=== PATIENT | female | born 1945 | race African-American/Black ===

== ENCOUNTER 2021-07-25 06:28 | Emergency (ER) | payer MEDICARE, MEDICAID ==
[~2021-07-25] VITALS: Ht 157.5 cm; Wt 60.0 kg
[2021-07-25] MEDS ORDERED: CARBAMIDE PEROXIDE 6.5% OTIC SOLN 15ML EACH EAR ONE (07:45)
[2021-07-25] MEDS ORDERED: CARB15DR63 EACH EAR (09:31)
[2021-07-25 09:40] VITALS: BP 135/74
== END 2021-07-25 09:52 | disposition home or self-care (01) ==
LOC: ER 06:28
DX: H61.23 Impacted cerumen, bilateral (principal)
CPT/HCPCS: 69209; 99282

== ENCOUNTER 2024-08-13 18:05 | Emergency (ER) | payer MEDICARE, MEDICAID ==
[~2024-08-13] VITALS: Ht 162.6 cm; Wt 91.0 kg
[~2024-08-13 18:05] MED LIST: CARB15DR63 EACH EAR
[2024-08-13 18:14] VITALS: TEMP 98.6; O2SAT 99
[2024-08-13 19:35] LABS: HEMATOCRIT. 45.5 % (36.0-48.0); HEMOGLOBIN. 15.5 g/dL (12.0-16.0); MEAN CORPUSCULAR HEMOGLOBIN 31.1 pg (28.0-32.0); MEAN CORPUSCULAR VOLUME 91.5 fL (81.0-99.0); MEAN PLATELET VOLUME 7.4 fl (7.4-10.4); PLATELET 291 x1000/uL (130-400); RED BLOOD CELL COUNT 4.97 mill/uL (4.2-5.4); RED CELL DISTRIBUTION WIDTH 13.9 % (11.6-14.6)
[2024-08-13 19:38] LABS: CHLORIDE 94 mEq/L (98-107); POTASSIUM 2.9 mEq/L (3.5-5.1); SODIUM 130 mEq/L (136-145)
[2024-08-13 19:39] LABS: CARBON DIOXIDE 26 mEq/L (21-32); DIFFERENTIAL COMMENT 1
[2024-08-13 19:44] LABS: CREATININE 1.6 mg/dL (0.6-1.0); GLUCOSE 223 mg/dL (70-105)
[2024-08-13 19:45] LABS: TROPONIN I HIGH SENSITIVITY 13 ng/L (3.0-34); UREA NITROGEN BLOOD 18 mg/dL (9-23)
[2024-08-13 19:46] LABS: ALANINE AMINOTRANSFERASE 9 IU/L (10-49); ALBUMIN 3.9 g/dL (3.2-4.8); ASPARTATE AMINOTRANSFERASE 12 IU/L (<34); WHITE BLOOD COUNT 54.6 x1000/uL (4.5-11.0)
[2024-08-13 19:47] LABS: BILIRUBIN DIRECT 0.3 mg/dL (<=3.0); BILIRUBIN TOTAL 0.7 mg/dL (0.1-1.0); PROTEIN TOTAL 6.8 g/dL (6.0-8.3)
[2024-08-13 20:39] LABS: INR 1.2
[2024-08-13 21:20] VITALS: BP 110/49; PULSE 85; RESP 15; O2SAT 99
[2024-08-13] MEDS: PANTOPRAZOLE SODIUM 40 MG/VIAL IV STA (21:27)
[2024-08-13] MEDS: ONDANSETRON HCL 4MG/2ML INJ IV ONE (21:27)
[2024-08-13 21:29] LABS: POTASSIUM 3.1 mEq/L (3.5-5.1)
[2024-08-13 21:30] LABS: CALCIUM 10.2 mg/dL (8.7-10.4)
[2024-08-13 21:35] LABS: CREATININE 1.6 mg/dL (0.6-1.0)
[2024-08-13 21:55] LABS: PLATELET ESTIMATE NORMAL
== END 2024-08-13 21:29 | disposition home or self-care (01) ==
LOC: ER 18:35
DX: R05.9 Cough, unspecified (principal); J44.9 Chronic obstructive pulmonary disease, unspecified; I10 Essential (primary) hypertension
CPT/HCPCS: 99284; 96374; 96375; 80076; 80048; 83690; 85025; 85610; 84484; 36415; 93005; J2405; J2470

== ENCOUNTER 2024-08-24 07:53 | Inpatient (IN) | payer MEDICARE, MEDICAID ==
[~2024-08-24] VITALS: Ht 157.5 cm; Wt 71.2 kg
[2024-08-24] MEDS: PIPERACILLIN/TAZO 3.375G/50ML 50 ML IV ONE (08:58)
[2024-08-24] MEDS: SODIUM CHLORIDE 0.9% 1000ML BAG (SEPSIS BOLUS) IV ONE (08:58)
[2024-08-24 09:24] LABS: HEMATOCRIT. 21.9 % (36.0-48.0); HEMOGLOBIN. 7.5 g/dL (12.0-16.0); MEAN CORPUSCULAR HEMOGLOBIN 30.9 pg (28.0-32.0); MEAN CORPUSCULAR HGB CONC 34.4 g/dL (31.0-37.0); MEAN CORPUSCULAR VOLUME 89.8 fL (81.0-99.0); MEAN PLATELET VOLUME 8.1 fl (7.4-10.4); PLATELET 355 x1000/uL (130-400); RED BLOOD CELL COUNT 2.44 mill/uL (4.2-5.4); RED CELL DISTRIBUTION WIDTH 13.7 % (11.6-14.6)
[2024-08-24 09:31] LABS: CHLORIDE 86 mEq/L (98-107); POTASSIUM 3.2 mEq/L (3.5-5.1); SODIUM 122 mEq/L (136-145)
[2024-08-24 09:32] LABS: CALCIUM 8.8 mg/dL (8.7-10.4); CARBON DIOXIDE 26 mEq/L (21-32)
[2024-08-24 09:33] LABS: INR 1.1; PROTHROMBIN TIME 11.9 sec (9.6-11.0)
[2024-08-24 09:34] LABS: DIFFERENTIAL COMMENT 1
[2024-08-24 09:37] LABS: CREATININE 0.8 mg/dL (0.6-1.0); GLUCOSE 121 mg/dL (70-105); UREA NITROGEN BLOOD 18 mg/dL (9-23)
[2024-08-24 09:38] LABS: TROPONIN I HIGH SENSITIVITY 23 ng/L (3.0-34)
[2024-08-24] MEDS: VANCOMYCIN 1G PREMIX 200 ML IV ONE (09:42)
[2024-08-24 10:09] LABS: ETHANOL BLOOD < 10 mg/dL (<10)
[2024-08-24 10:15] LABS: LACTIC ACID 4.6 mmol/L (0.4-2.0)
[2024-08-24 11:18] LABS: CLARITY URINE CLEAR (CLEAR); COLOR URINE YELLOW (YELLOW); GLUCOSE URINE NEGATIVE (NEGATIVE); KETONES URINE NEGATIVE (NEGATIVE); LEUKOCYTE ESTERASE URINE 2+ (NEGATIVE); NITRITE URINE NEGATIVE (NEGATIVE); OCCULT BLOOD URINE 1+ (NEGATIVE); PROTEIN URINE NEGATIVE (NEGATIVE); SPECIFIC GRAVITY URINE 1.019 (1.005-1.030); UROBILINOGEN URINE 0.2 E.U./dL (0.2-1.0)
[2024-08-24 11:28] LABS: BACTERIA URINE 1+; RBC URINE 0-2 /hpf (0-2); SQUAMOUS EPITHELIAL CELL URINE 1+ /lpf (RARE/1+); YEAST URINE NONE SEEN
[2024-08-24 11:35] LABS: *AMPHETAMINES SCREEN URINE NEGATIVE (NEGATIVE); *BARBITURATES SCREEN URINE NEGATIVE (NEGATIVE)
[2024-08-24 11:36] LABS: *BENZODIAZEPINES SCREEN URINE NEGATIVE (NEGATIVE); *COCAINE SCREEN URINE NEGATIVE (NEGATIVE); CANNABINOID URINE SCREEN NEGATIVE (NEGATIVE); ECSTASY MDMA SCREEN URINE NEGATIVE (NEGATIVE); METHADONE URINE SCREEN NEGATIVE (NEGATIVE); OPIATES URINE SCREEN NEGATIVE (NEGATIVE); PHENCYCLIDINE URINE SCREEN NEGATIVE (NEGATIVE)
[2024-08-24] MEDS: SODIUM CHLORIDE 0.9% 1,000 ML IV ONE (13:15)
[2024-08-24 14:51] LABS: PLATELET ESTIMATE NORMAL
[2024-08-24] MEDS: SODIUM CHLORIDE 0.9% 1,000 ML IV STA (16:51)
[2024-08-24] MEDS ORDERED: ONDANSETRON HCL 4MG/2ML INJ IV PRN (17:45)
[2024-08-24] MEDS ORDERED: CLONIDINE 0.1MG TABLET PO PRN (17:45)
[2024-08-24] MEDS ORDERED: ACETAMINOPHEN 325MG TABLET PO PRN ×2 (17:45)
[2024-08-24] MEDS ORDERED: DIPHENHYDRAMINE 50MG/ML VIAL IV PRN (17:45)
[2024-08-24] MEDS ORDERED: DEXTROSE 50% WATER 50ML SYRINGE IV PRN (18:00)
[2024-08-24 18:15] VITALS: BP 123/63; PULSE 127; RESP 22; TEMP 37.7808; TEMP 37.808; O2SAT 98
[2024-08-24] MEDS: INSULIN LISPRO 100 UNITS/ML SUBCUT SCH (18:20)
[2024-08-24 18:21] LABS: PHOSPHORUS 2.2 mg/dL (2.5-4.9)
[2024-08-24 18:24] LABS: T4 FREE 1.52 ng/dL (0.89-1.76); THYROID STIMULATING HORMONE 1.93 uIU/mL (0.55-4.78)
[2024-08-24] MEDS: HYDROCORTISONE SOD SUCCINATE 100 MG/2 ML VIAL IV NR (18:58)
[2024-08-24] MEDS: FLUDROCORTISONE ACETATE 0.1MG TABLET PO SCH (18:58)
[2024-08-24] MEDS: SODIUM CHLORIDE 0.9% 1,000 ML IV SCH (19:10)
[2024-08-24 20:00] VITALS: BP 91/47; PULSE 130; RESP 27; TEMP 36.44736; O2SAT 97
[2024-08-24] MEDS: KCL 20MEQ/100ML PREMIX 100 ML IV SCH (20:46)
[2024-08-24] MEDS: FAMOTIDINE 20MG TABLET PO SCH (20:56)
[2024-08-24] MEDS: ENOXAPARIN 40MG/0.4ML SYR SUBCUT SCH (20:56)
[2024-08-24] MEDS: BLOOD SUGAR DIAGNOSTIC STRIP TEST SCH (21:00)
[2024-08-24 22:00] VITALS: BP 90/58; PULSE 129; RESP 22; O2SAT 98
[2024-08-24] MEDS: SODIUM CHLORIDE 0.9% 3ML FLUSH IVF SCH (22:00)
[2024-08-25] VITALS (20 sets, daily range): BP systolic 80–140; BP diastolic 40–114; PULSE 107–130; RESP 16–29; TEMP 36.33624–37.44744; O2SAT 97–100
[2024-08-25] MEDS: MAGNESIUM 4 G PREMIX 100 ML IV SCH (01:31)
[2024-08-25] MEDS: MIDODRINE HCL 5MG TABLET PO SCH (01:42)
[2024-08-25] MEDS: SODIUM PHOSPHATE 15 MMOL in DEXT 5% WATER 245 ML IV SCH (03:38)
[2024-08-25 05:35] LABS: MEAN CORPUSCULAR HEMOGLOBIN 31.5 pg (28.0-32.0); MEAN CORPUSCULAR HGB CONC 34.8 g/dL (31.0-37.0); MEAN CORPUSCULAR VOLUME 90.5 fL (81.0-99.0); MEAN PLATELET VOLUME 7.2 fl (7.4-10.4); PLATELET 274 x1000/uL (130-400); RED BLOOD CELL COUNT 1.75 mill/uL (4.2-5.4); RED CELL DISTRIBUTION WIDTH 13.7 % (11.6-14.6); WHITE BLOOD COUNT 30.3 x1000/uL (4.5-11.0)
[2024-08-25 05:40] LABS: DIFFERENTIAL COMMENT 1
[2024-08-25] MEDS: PIPERACILLIN/TAZO 3.375G/50ML IV SCH (05:41)
[2024-08-25 05:44] LABS: CHLORIDE 101 mEq/L (98-107); POTASSIUM 3.6 mEq/L (3.5-5.1)
[2024-08-25 05:47] LABS: CALCIUM 8.5 mg/dL (8.7-10.4); CARBON DIOXIDE 27 mEq/L (21-32)
[2024-08-25 05:51] LABS: URIC ACID 4.1 mg/dL (3.1-7.8)
[2024-08-25 05:52] LABS: CREATININE 0.6 mg/dL (0.6-1.0); GLUCOSE 116 mg/dL (70-105); HEMATOCRIT. 15.9 % (36.0-48.0); HEMOGLOBIN. 5.5 g/dL (12.0-16.0); UREA NITROGEN BLOOD 14 mg/dL (9-23)
[2024-08-25 05:53] LABS: ALANINE AMINOTRANSFERASE 14 IU/L (10-49); ASPARTATE AMINOTRANSFERASE 13 IU/L (<34)
[2024-08-25 05:54] LABS: ALBUMIN 2.6 g/dL (3.2-4.8); BILIRUBIN TOTAL 0.3 mg/dL (0.1-1.0); PHOSPHORUS 3.1 mg/dL (2.5-4.9)
[2024-08-25 06:05] LABS: PROTEIN TOTAL 4.3 g/dL (6.0-8.3); SODIUM 134 mEq/L (136-145)
[2024-08-25] MEDS: HYDROCORTISONE 10MG TABLET PO SCH (08:22)
[2024-08-25] MEDS: VANCOMYCIN 1GM/200ML PMX (BAXTER) IV SCH (08:23)
[2024-08-25] MEDS ORDERED: PANTOPRAZOLE SODIUM 40 MG/VIAL IV SCH (09:00)
[2024-08-25] MEDS: PANTOPRAZOLE SODIUM 40 MG/VIAL IV SCH (11:04)
[2024-08-25 16:51] LABS: PLATELET ESTIMATE NORMAL
[2024-08-25 23:49] LABS: HEMATOCRIT 24.4 % (36.0-48.0); HEMOGLOBIN 8.5 g/dL (12.0-16.0); MEAN CORPUSCULAR HEMOGLOBIN 31.9 pg (28.0-32.0); MEAN CORPUSCULAR HGB CONC 34.9 g/dL (31.0-37.0); MEAN CORPUSCULAR VOLUME 91.3 fL (81.0-99.0); PLATELET 245 x1000/uL (130-400); RED BLOOD CELL COUNT 2.68 mill/uL (4.2-5.4); RED CELL DISTRIBUTION WIDTH 13.8 % (11.6-14.6); WHITE BLOOD COUNT 24.1 x1000/uL (4.5-11.0)
[2024-08-25 23:59] LABS: IRON 84 ug/dL (50-170)
[2024-08-26] VITALS (32 sets, daily range): BP systolic 91–149; BP diastolic 55–117; PULSE 107–166; RESP 15–38; TEMP 36.44736–37.83636; O2SAT 94–100
[2024-08-26 00:02] LABS: TOTAL IRON BINDING CAPACITY 188 ug/dl (250-425)
[2024-08-26 00:05] LABS: FERRITIN 110 ng/mL (10-291); FOLIC ACID (FOLATE) SERUM 7.86 ng/mL (>5.38)
[2024-08-26 00:06] LABS: VITAMIN B12 SERUM 806 pg/mL (211-911)
[2024-08-26 07:56] LABS: HEMATOCRIT 23.8 % (36.0-48.0); MEAN CORPUSCULAR HEMOGLOBIN 30.8 pg (28.0-32.0); MEAN CORPUSCULAR HGB CONC 33.6 g/dL (31.0-37.0); MEAN CORPUSCULAR VOLUME 91.9 fL (81.0-99.0); PLATELET 245 x1000/uL (130-400); RED BLOOD CELL COUNT 2.59 mill/uL (4.2-5.4); RED CELL DISTRIBUTION WIDTH 13.7 % (11.6-14.6); WHITE BLOOD COUNT 25.3 x1000/uL (4.5-11.0)
[2024-08-26 08:07] LABS: CARBON DIOXIDE 29 mEq/L (21-32); CHLORIDE 103 mEq/L (98-107); POTASSIUM 3.1 mEq/L (3.5-5.1); SODIUM 138 mEq/L (136-145)
[2024-08-26 08:08] LABS: CALCIUM 8.7 mg/dL (8.7-10.4)
[2024-08-26 08:09] LABS: PROLACTIN 11.9 ng/mL (3.6-32.0)
[2024-08-26 08:13] LABS: CREATININE 0.7 mg/dL (0.6-1.0); GLUCOSE 99 mg/dL (70-105); UREA NITROGEN BLOOD 12 mg/dL (9-23)
[2024-08-26 08:14] LABS: LACTATE DEHYDROGENASE 177 IU/L (120-246)
[2024-08-26 09:10] LABS: FOLICLE STIMULATING HORMONE 15.2 mIU/mL (25.8-134.8); IMMUNOGLOBULIN A 158 mg/dL (64-422); IMMUNOGLOBULIN G 682 mg/dL (586-1602); IMMUNOGLOBULIN M 34 mg/dL (26-217)
[2024-08-26] MEDS: SODIUM CHLORIDE 0.9% 500 ML IV ONE (10:09)
[2024-08-26] MEDS: POTASSIUM CHLORIDE 20MEQ/PACKET PO NR (10:09)
[2024-08-26] MEDS: VANCOMYCIN 1.25GM/250ML IV SCH (10:28)
[2024-08-26 17:56] LABS: HEMATOCRIT 27.4 % (36.0-48.0); HEMOGLOBIN 9.3 g/dL (12.0-16.0); MEAN CORPUSCULAR HEMOGLOBIN 31.1 pg (28.0-32.0); MEAN CORPUSCULAR HGB CONC 33.9 g/dL (31.0-37.0); MEAN CORPUSCULAR VOLUME 91.8 fL (81.0-99.0); PLATELET 232 x1000/uL (130-400); RED BLOOD CELL COUNT 2.98 mill/uL (4.2-5.4); RED CELL DISTRIBUTION WIDTH 13.6 % (11.6-14.6); WHITE BLOOD COUNT 30.6 x1000/uL (4.5-11.0)
[2024-08-26 22:17] LABS: HEMATOCRIT 27.4 % (36.0-48.0); HEMOGLOBIN 9.2 g/dL (12.0-16.0)
[2024-08-26 22:29] LABS: D-DIMER 1.79 mg/L FEU (<0.50); INR 1.1; PROTHROMBIN TIME 12.4 sec (9.6-11.0)
[2024-08-27] VITALS (19 sets, daily range): BP systolic 107–166; BP diastolic 12–120; PULSE 118–142; RESP 12–29; TEMP 36.28068–37.11408; O2SAT 99–100
[2024-08-27 01:35] LABS: HEMATOCRIT 23.3 % (36.0-48.0); HEMOGLOBIN 7.9 g/dL (12.0-16.0)
[2024-08-27 12:39] LABS: HEMATOCRIT 26.9 % (36.0-48.0); HEMOGLOBIN 9.1 g/dL (12.0-16.0)
[2024-08-27 12:40] LABS: CHLORIDE 105 mEq/L (98-107); POTASSIUM 3.2 mEq/L (3.5-5.1); SODIUM 137 mEq/L (136-145)
[2024-08-27 12:41] LABS: CALCIUM 8.8 mg/dL (8.7-10.4); CARBON DIOXIDE 29 mEq/L (21-32)
[2024-08-27 12:46] LABS: CREATININE 0.7 mg/dL (0.6-1.0); GLUCOSE 113 mg/dL (70-105); UREA NITROGEN BLOOD 14 mg/dL (9-23)
[2024-08-27] MEDS ORDERED: POTASSIUM CHLORIDE 40 MEQ in DEXT 5% WATER 230 ML IV SCH (16:00)
[2024-08-27] MEDS: POTASSIUM CHLORIDE 20MEQ TABLET SR PO NR ×2 (16:10→18:12)
[2024-08-27] MEDS: DILTIAZEM HCL 30MG TABLET PO SCH (16:11)
[2024-08-27] MEDS ORDERED: DILTIAZEM HCL 30MG TABLET PO SCH (17:00)
[2024-08-27] MEDS ORDERED: POTASSIUM CHLORIDE 40 MEQ in DEXT 5% WATER 230 ML IV ONE (18:00)
[2024-08-27] MEDS: SODIUM CHLORIDE 0.9% 1,000 ML IV SCH (18:14)
[2024-08-27 23:32] LABS: HEMATOCRIT 26.4 % (36.0-48.0); HEMOGLOBIN 8.9 g/dL (12.0-16.0); MEAN CORPUSCULAR HEMOGLOBIN 29.6 pg (28.0-32.0); MEAN CORPUSCULAR HGB CONC 33.8 g/dL (31.0-37.0); MEAN CORPUSCULAR VOLUME 87.6 fL (81.0-99.0); PLATELET 242 x1000/uL (130-400); RED BLOOD CELL COUNT 3.02 mill/uL (4.2-5.4); RED CELL DISTRIBUTION WIDTH 19.6 % (11.6-14.6); WHITE BLOOD COUNT 24.2 x1000/uL (4.5-11.0)
[2024-08-28] VITALS (21 sets, daily range): BP systolic 92–138; BP diastolic 48–87; PULSE 103–125; RESP 20–29; TEMP 36.33624–37.28076; O2SAT 99–100
[2024-08-28 06:31] LABS: CALCIUM 8.9 mg/dL (8.7-10.4); CARBON DIOXIDE 27 mEq/L (21-32); CHLORIDE 109 mEq/L (98-107); POTASSIUM 4.1 mEq/L (3.5-5.1); SODIUM 140 mEq/L (136-145)
[2024-08-28 06:37] LABS: CREATININE 0.7 mg/dL (0.6-1.0); GLUCOSE 96 mg/dL (70-105); UREA NITROGEN BLOOD 14 mg/dL (9-23)
[2024-08-28 06:41] LABS: BASOPHILS % 0.3 % (0.0-2.0); DIFFERENTIAL COMMENT 0; HEMATOCRIT. 22.5 % (36.0-48.0); HEMOGLOBIN. 7.6 g/dL (12.0-16.0); LYMPHOCYTES % 9.6 % (20.0-50.0); MEAN CORPUSCULAR HEMOGLOBIN 29.6 pg (28.0-32.0); MEAN CORPUSCULAR HGB CONC 33.6 g/dL (31.0-37.0); MEAN CORPUSCULAR VOLUME 88.2 fL (81.0-99.0); MEAN PLATELET VOLUME 6.9 fl (7.4-10.4); MONOCYTES % 7.6 % (2.0-8.0); NEUTROPHILS % 81.5 % (40.0-76.0); PLATELET 215 x1000/uL (130-400); RED BLOOD CELL COUNT 2.55 mill/uL (4.2-5.4); RED CELL DISTRIBUTION WIDTH 19.5 % (11.6-14.6); WHITE BLOOD COUNT 16.3 x1000/uL (4.5-11.0)
[2024-08-28] MEDS: DEXT 5%/0.45% NACL 1000ML 1,000 ML IV SCH (16:16)
[2024-08-29] VITALS (12 sets, daily range): BP systolic 94–142; BP diastolic 55–71; PULSE 105–118; RESP 11–31; TEMP 36.05844–37.503; O2SAT 92–100
[2024-08-29 05:31] LABS: BASOPHILS % 0.3 % (0.0-2.0); DIFFERENTIAL COMMENT 0; EOSINOPHILS % 1.2 % (0.0-5.0); HEMATOCRIT. 28.3 % (36.0-48.0); HEMOGLOBIN. 9.5 g/dL (12.0-16.0); LYMPHOCYTES % 11.6 % (20.0-50.0); MEAN CORPUSCULAR HEMOGLOBIN 28.7 pg (28.0-32.0); MEAN CORPUSCULAR HGB CONC 33.5 g/dL (31.0-37.0); MEAN CORPUSCULAR VOLUME 85.8 fL (81.0-99.0); MEAN PLATELET VOLUME 6.9 fl (7.4-10.4); MONOCYTES % 8.3 % (2.0-8.0); NEUTROPHILS % 78.6 % (40.0-76.0); PLATELET 191 x1000/uL (130-400); RED CELL DISTRIBUTION WIDTH 18.5 % (11.6-14.6); WHITE BLOOD COUNT 15.7 x1000/uL (4.5-11.0)
[2024-08-29] MEDS: HYDROCORTISONE 10MG TABLET PO SCH (17:00)
[2024-08-29] MEDS: DILTIAZEM HCL 30MG TABLET PO SCH (20:00)
[2024-08-29] MEDS: METOPROLOL TARTRATE 25MG TABLET PO SCH (21:38)
[2024-08-30] VITALS (12 sets, daily range): BP systolic 111–144; BP diastolic 55–81; PULSE 90–121; RESP 13–27; TEMP 36.3918–37.11408; O2SAT 98–100
[2024-08-30 05:38] LABS: BASOPHILS % 0.6 % (0.0-2.0); DIFFERENTIAL COMMENT 0; EOSINOPHILS % 1.2 % (0.0-5.0); HEMOGLOBIN. 8.6 g/dL (12.0-16.0); LYMPHOCYTES % 12.3 % (20.0-50.0); MEAN CORPUSCULAR HEMOGLOBIN 29.2 pg (28.0-32.0); MEAN CORPUSCULAR HGB CONC 33.1 g/dL (31.0-37.0); MEAN PLATELET VOLUME 6.9 fl (7.4-10.4); MONOCYTES % 8.2 % (2.0-8.0); NEUTROPHILS % 77.7 % (40.0-76.0); PLATELET 219 x1000/uL (130-400); RED BLOOD CELL COUNT 2.95 mill/uL (4.2-5.4); RED CELL DISTRIBUTION WIDTH 19.7 % (11.6-14.6); WHITE BLOOD COUNT 13.2 x1000/uL (4.5-11.0)
[2024-08-30 06:11] LABS: ERYTHROPOIETIN SERUM 182.7 mIU/mL (2.6-18.5)
[2024-08-30] MEDS: METOPROLOL TARTRATE 50MG TABLET PO SCH (22:39)
[2024-08-31] VITALS (10 sets, daily range): BP systolic 111–154; BP diastolic 59–101; PULSE 93–115; RESP 18–36; TEMP 36.6696–37.33632; O2SAT 98–100
[2024-08-31 06:24] LABS: CHLORIDE 108 mEq/L (98-107); SODIUM 142 mEq/L (136-145)
[2024-08-31 06:25] LABS: CALCIUM 8.5 mg/dL (8.7-10.4); CARBON DIOXIDE 28 mEq/L (21-32)
[2024-08-31 06:30] LABS: CREATININE 0.7 mg/dL (0.6-1.0); GLUCOSE 89 mg/dL (70-105)
[2024-08-31 06:31] LABS: INR 1.2; PROTHROMBIN TIME 13.1 sec (9.6-11.0)
[2024-08-31 06:38] LABS: BASOPHILS % 0.7 % (0.0-2.0); DIFFERENTIAL COMMENT 0; EOSINOPHILS % 1.1 % (0.0-5.0); HEMATOCRIT. 26.6 % (36.0-48.0); HEMOGLOBIN. 8.9 g/dL (12.0-16.0); LYMPHOCYTES % 10.6 % (20.0-50.0); MEAN CORPUSCULAR HEMOGLOBIN 29.6 pg (28.0-32.0); MEAN CORPUSCULAR HGB CONC 33.3 g/dL (31.0-37.0); MEAN CORPUSCULAR VOLUME 88.7 fL (81.0-99.0); MEAN PLATELET VOLUME 6.8 fl (7.4-10.4); MONOCYTES % 9.4 % (2.0-8.0); NEUTROPHILS % 78.2 % (40.0-76.0); PLATELET 240 x1000/uL (130-400); RED CELL DISTRIBUTION WIDTH 18.6 % (11.6-14.6); WHITE BLOOD COUNT 12.6 x1000/uL (4.5-11.0)
[2024-08-31 07:43] LABS: POTASSIUM 2.7 mEq/L (3.5-5.1); UREA NITROGEN BLOOD < 5 mg/dL (9-23)
[2024-08-31] MEDS: POTASSIUM CHLORIDE 20MEQ/PACKET PO NR (08:52)
[2024-08-31] MEDS: KCL 20MEQ/100ML PREMIX 100 ML IV SCH (11:17)
[2024-08-31] MEDS ORDERED: PROPOFOL 200MG/20ML VIAL IV ONE (13:59)
[2024-08-31 14:19] LABS: POTASSIUM 3.8 mEq/L (3.5-5.1)
[2024-09-01] VITALS (9 sets, daily range): BP systolic 97–145; BP diastolic 52–85; PULSE 83–103; RESP 18–30; TEMP 36.55848–37.11408; O2SAT 100
[2024-09-01 07:27] LABS: BASOPHILS % 0.5 % (0.0-2.0); DIFFERENTIAL COMMENT 0; EOSINOPHILS % 1.6 % (0.0-5.0); HEMATOCRIT. 24.4 % (36.0-48.0); HEMOGLOBIN. 8.1 g/dL (12.0-16.0); LYMPHOCYTES % 12.4 % (20.0-50.0); MEAN CORPUSCULAR HEMOGLOBIN 29.7 pg (28.0-32.0); MEAN CORPUSCULAR HGB CONC 33.1 g/dL (31.0-37.0); MEAN CORPUSCULAR VOLUME 89.7 fL (81.0-99.0); MEAN PLATELET VOLUME 6.9 fl (7.4-10.4); MONOCYTES % 10.9 % (2.0-8.0); NEUTROPHILS % 74.6 % (40.0-76.0); PLATELET 233 x1000/uL (130-400); RED BLOOD CELL COUNT 2.72 mill/uL (4.2-5.4); RED CELL DISTRIBUTION WIDTH 19.6 % (11.6-14.6); WHITE BLOOD COUNT 10.6 x1000/uL (4.5-11.0)
[2024-09-01 07:28] LABS: CARBON DIOXIDE 27 mEq/L (21-32); CHLORIDE 112 mEq/L (98-107); POTASSIUM 3.1 mEq/L (3.5-5.1); SODIUM 142 mEq/L (136-145)
[2024-09-01 07:30] LABS: CALCIUM 8.4 mg/dL (8.7-10.4)
[2024-09-01 07:33] LABS: CREATININE 0.8 mg/dL (0.6-1.0)
[2024-09-01 07:35] LABS: GLUCOSE 96 mg/dL (70-105)
[2024-09-01 07:42] LABS: UREA NITROGEN BLOOD < 5 mg/dL (9-23)
[2024-09-01] MEDS: KCL 20MEQ/100ML PREMIX 100 ML IV NR (10:31)
[2024-09-01 13:07] LABS: DIRECTOR REVIEW Comment: (.); FISH RESULTS Comment: (.)
[2024-09-01] MEDS: MIRTAZAPINE 15MG TABLET PO SCH (21:33)
[2024-09-01] MEDS: POTASSIUM CHLORIDE 20MEQ TABLET SR PO NR (21:36)
[2024-09-02] VITALS (11 sets, daily range): BP systolic 99–132; BP diastolic 49–74; PULSE 78–102; RESP 18–26; TEMP 36.44736–36.9474; O2SAT 100
[2024-09-02 07:50] LABS: BASOPHILS % 0.6 % (0.0-2.0); DIFFERENTIAL COMMENT 0; HEMATOCRIT. 27.6 % (36.0-48.0); HEMOGLOBIN. 9.1 g/dL (12.0-16.0); LYMPHOCYTES % 16.9 % (20.0-50.0); MEAN CORPUSCULAR HEMOGLOBIN 29.8 pg (28.0-32.0); MEAN CORPUSCULAR HGB CONC 32.9 g/dL (31.0-37.0); MEAN CORPUSCULAR VOLUME 90.4 fL (81.0-99.0); MEAN PLATELET VOLUME 6.4 fl (7.4-10.4); NEUTROPHILS % 68.5 % (40.0-76.0); PLATELET 262 x1000/uL (130-400); RED BLOOD CELL COUNT 3.06 mill/uL (4.2-5.4); RED CELL DISTRIBUTION WIDTH 20.9 % (11.6-14.6); WHITE BLOOD COUNT 8.5 x1000/uL (4.5-11.0)
[2024-09-02 07:54] LABS: CARBON DIOXIDE 28 mEq/L (21-32); CHLORIDE 113 mEq/L (98-107); POTASSIUM 3.4 mEq/L (3.5-5.1); SODIUM 145 mEq/L (136-145)
[2024-09-02] MEDS: LACTOBACILLUS GG CAPSULE PO SCH (08:54)
[2024-09-02] MEDS: MAGNESIUM 4 G PREMIX 100 ML IV NR (11:10)
[2024-09-02] MEDS: POTASSIUM CHLORIDE 20MEQ TABLET SR PO NR (11:10)
[2024-09-03] VITALS: BP 115/53; PULSE 89; RESP 23; TEMP 36.33624; O2SAT 99
[2024-09-03 04:00] VITALS: BP 138/70; PULSE 106; RESP 14; TEMP 36.44736; O2SAT 100
[2024-09-03 06:11] LABS: CARBON DIOXIDE 28 mEq/L (21-32); CHLORIDE 112 mEq/L (98-107); POTASSIUM 3.3 mEq/L (3.5-5.1); SODIUM 144 mEq/L (136-145)
[2024-09-03 06:14] LABS: HEMATOCRIT 26.1 % (36.0-48.0); HEMOGLOBIN 8.6 g/dL (12.0-16.0); MEAN CORPUSCULAR HEMOGLOBIN 30.2 pg (28.0-32.0); MEAN CORPUSCULAR VOLUME 91.6 fL (81.0-99.0); PLATELET 247 x1000/uL (130-400); RED BLOOD CELL COUNT 2.85 mill/uL (4.2-5.4); RED CELL DISTRIBUTION WIDTH 22.4 % (11.6-14.6); WHITE BLOOD COUNT 8.5 x1000/uL (4.5-11.0)
[2024-09-03 08:00] VITALS: BP 127/55; PULSE 96; RESP 30; TEMP 37.05852; O2SAT 100
[2024-09-03 12:00] VITALS: BP 127/58; PULSE 87; RESP 28; TEMP 36.22512; O2SAT 99
[2024-09-03 16:00] VITALS: BP 128/60; PULSE 93; RESP 31; TEMP 36.61404; O2SAT 100
[2024-09-03 20:00] VITALS: BP 130/67; PULSE 94; RESP 27; TEMP 36.33624; O2SAT 100
[2024-09-03] MEDS: POTASSIUM CHLORIDE 20MEQ TABLET SR PO SCH (20:49)
[2024-09-04] VITALS: BP_SYST 112; BP_SYST 130; BP_DIAS 90; BP_DIAS 99; PULSE 85; PULSE 88; RESP 20; RESP 23; TEMP 36.44736; TEMP 36.72516; O2SAT 100
[2024-09-04 04:00] VITALS: BP 115/61; PULSE 92; RESP 22; TEMP 36.72516; O2SAT 100
[2024-09-04 08:00] VITALS: BP 131/70; PULSE 98; RESP 27; TEMP 36.83628; O2SAT 99
[2024-09-04 11:26] LABS: INR 1.1; PROTHROMBIN TIME 12.4 sec (9.6-11.0)
[2024-09-04 11:27] LABS: CHLORIDE 111 mEq/L (98-107); POTASSIUM 3.7 mEq/L (3.5-5.1); SODIUM 143 mEq/L (136-145)
[2024-09-04 11:28] LABS: CARBON DIOXIDE 27 mEq/L (21-32)
[2024-09-04 11:29] LABS: CALCIUM 8.5 mg/dL (8.7-10.4)
[2024-09-04 11:33] LABS: CREATININE 0.7 mg/dL (0.6-1.0)
[2024-09-04 11:34] LABS: GLUCOSE 88 mg/dL (70-105); UREA NITROGEN BLOOD < 5 mg/dL (9-23)
[2024-09-04 11:52] LABS: BASOPHILS % 0.6 % (0.0-2.0); EOSINOPHILS % 1.5 % (0.0-5.0); HEMATOCRIT. 27.6 % (36.0-48.0); HEMOGLOBIN. 9.1 g/dL (12.0-16.0); LYMPHOCYTES % 15.8 % (20.0-50.0); MEAN CORPUSCULAR HEMOGLOBIN 30.2 pg (28.0-32.0); MEAN CORPUSCULAR HGB CONC 33.1 g/dL (31.0-37.0); MEAN CORPUSCULAR VOLUME 91.3 fL (81.0-99.0); MEAN PLATELET VOLUME 6.7 fl (7.4-10.4); MONOCYTES % 9.2 % (2.0-8.0); NEUTROPHILS % 72.9 % (40.0-76.0); PLATELET 272 x1000/uL (130-400); RED BLOOD CELL COUNT 3.03 mill/uL (4.2-5.4); RED CELL DISTRIBUTION WIDTH 21.8 % (11.6-14.6); WHITE BLOOD COUNT 9.8 x1000/uL (4.5-11.0)
[2024-09-04 12:00] VITALS: BP 120/63; PULSE 83; RESP 28; TEMP 36.9474; O2SAT 100
[2024-09-04] MEDS ORDERED: ONDANSETRON HCL 4MG/2ML INJ IV PRN (15:15)
[2024-09-04] MEDS ORDERED: FENTANYL CITRATE/PF 50MCG/ML 2ML VIAL IV PRN (15:15)
[2024-09-04] MEDS ORDERED: PROPOFOL 200MG/20ML VIAL IV ONE (15:21)
[2024-09-04] MEDS ORDERED: LIDOCAINE HCL 1% 20ML VIAL ONE (15:21)
[2024-09-04 20:00] VITALS: BP 122/63; PULSE 99; RESP 22; TEMP 37.05852; O2SAT 100
[2024-09-05] VITALS: BP 128/68; PULSE 79; RESP 22; TEMP 36.89184; O2SAT 100
[2024-09-05 04:00] VITALS: BP 122/58; PULSE 84; RESP 20; TEMP 37.05852; O2SAT 100
[2024-09-05 08:00] VITALS: BP 116/62; PULSE 100; RESP 27; TEMP 36.9474; O2SAT 100
[2024-09-05 12:00] VITALS: BP 131/69; PULSE 89; RESP 20; TEMP 36.50292; O2SAT 100
[2024-09-05 16:00] VITALS: BP 130/73; PULSE 92; RESP 18; TEMP 36.61404; O2SAT 98
[2024-09-05 16:30] LABS: CHLORIDE 111 mEq/L (98-107); POTASSIUM 3.6 mEq/L (3.5-5.1); SODIUM 141 mEq/L (136-145)
[2024-09-05 16:31] LABS: CARBON DIOXIDE 29 mEq/L (21-32)
[2024-09-05 16:32] LABS: BASOPHILS % 0.3 % (0.0-2.0); CALCIUM 8.8 mg/dL (8.7-10.4); EOSINOPHILS % 0.4 % (0.0-5.0); HEMATOCRIT. 30.9 % (36.0-48.0); HEMOGLOBIN. 9.9 g/dL (12.0-16.0); LYMPHOCYTES % 12.1 % (20.0-50.0); MEAN CORPUSCULAR HEMOGLOBIN 29.3 pg (28.0-32.0); MEAN CORPUSCULAR VOLUME 91.7 fL (81.0-99.0); MEAN PLATELET VOLUME 6.8 fl (7.4-10.4); MONOCYTES % 5.9 % (2.0-8.0); NEUTROPHILS % 81.3 % (40.0-76.0); PLATELET 304 x1000/uL (130-400); RED BLOOD CELL COUNT 3.37 mill/uL (4.2-5.4); RED CELL DISTRIBUTION WIDTH 21.4 % (11.6-14.6); WHITE BLOOD COUNT 9.8 x1000/uL (4.5-11.0)
[2024-09-05 16:36] LABS: CREATININE 0.7 mg/dL (0.6-1.0); GLUCOSE 106 mg/dL (70-105); UREA NITROGEN BLOOD 5 mg/dL (9-23)
[2024-09-05 20:00] VITALS: BP 130/59; PULSE 102; RESP 18; TEMP 36.6696; O2SAT 100
[2024-09-05] MEDS ORDERED: OMEPRAZOLE 20MG CAPSULE EXTENDED RELEASE PO SCH (21:00)
[2024-09-06] VITALS: BP 141/66; PULSE 83; RESP 19; TEMP 36.78072; O2SAT 100
[2024-09-06 04:00] VITALS: BP 143/70; PULSE 97; RESP 18; TEMP 37.00296; O2SAT 100
[2024-09-06] MEDS: PANTOPRAZOLE 40MG DR TABLET PO SCH (05:43)
[2024-09-06 07:42] LABS: CALCIUM 8.8 mg/dL (8.7-10.4); CARBON DIOXIDE 30 mEq/L (21-32); CHLORIDE 111 mEq/L (98-107); SODIUM 144 mEq/L (136-145)
[2024-09-06 07:48] LABS: CREATININE 0.7 mg/dL (0.6-1.0); GLUCOSE 87 mg/dL (70-105)
[2024-09-06 07:56] LABS: UREA NITROGEN BLOOD < 5 mg/dL (9-23)
[2024-09-06 08:00] VITALS: BP 114/69; PULSE 100; RESP 18; TEMP 36.50292; O2SAT 100
[2024-09-06] MEDS: COSYNTROPIN 0.25MG/ML VIAL IV NR (08:18)
[2024-09-06 08:41] LABS: BASOPHILS % 0.3 % (0.0-2.0); HEMATOCRIT. 28.8 % (36.0-48.0); HEMOGLOBIN. 9.5 g/dL (12.0-16.0); LYMPHOCYTES % 18.6 % (20.0-50.0); MEAN CORPUSCULAR HEMOGLOBIN 30.3 pg (28.0-32.0); MEAN CORPUSCULAR HGB CONC 33.1 g/dL (31.0-37.0); MEAN CORPUSCULAR VOLUME 91.8 fL (81.0-99.0); MONOCYTES % 9.6 % (2.0-8.0); NEUTROPHILS % 69.5 % (40.0-76.0); PLATELET 280 x1000/uL (130-400); RED BLOOD CELL COUNT 3.14 mill/uL (4.2-5.4); RED CELL DISTRIBUTION WIDTH 21.6 % (11.6-14.6)
[2024-09-06] MEDS ORDERED: POTASSIUM CHLORIDE 40 MEQ in DEXT 5% WATER 230 ML IV ONE (11:30)
[2024-09-06 12:00] VITALS: BP 122/57; PULSE 99; RESP 18; TEMP 36.6696; O2SAT 100
[2024-09-06] MEDS: KCL 20MEQ/100ML X 2 FOR TOTAL KCL 40MEQ/200ML IV SCH (13:00)
[2024-09-06 14:11] VITALS: BP 120/60; PULSE 90; TEMP 98.1; O2SAT 96
[2024-09-06 14:57] VITALS: BP 114/69; PULSE 90; RESP 15; TEMP 36.44736
[2024-09-06] MEDS ORDERED: METOPROLOL TARTRATE 25MG TABLET PO SCH (21:00)
[2024-09-07] MEDS ORDERED: HYDROCORTISONE 10MG TABLET PO SCH (09:00)
== END 2024-09-06 16:00 | disposition home health service (06) | DRG 871 ==
LOC: ER 07:53 → EDBEDREQ 10:16 → EDBEDREQSVC 15:18 → 5EST 18:30 → 7EST 09-05 10:20
PROVIDERS: ADMIT Internal Medicine; ATTEND Internal Medicine
PROC: 02HV33Z Insertion of Infusion Device into Superior Vena Cava, Percutaneous Approach (ICD-10-PCS; 2024-08-24)
PROC: B548ZZA Ultrasonography of Superior Vena Cava, Guidance (ICD-10-PCS; 2024-08-24)
PROC: 30233N1 Transfusion of Nonautologous Red Blood Cells into Peripheral Vein, Percutaneous Approach (ICD-10-PCS; principal; 2024-08-25)
PROC: 0DB68ZX Excision of Stomach, Via Natural or Artificial Opening Endoscopic, Diagnostic (ICD-10-PCS; 2024-09-04)
DX: A41.9 Sepsis, unspecified organism (principal); G93.41 Metabolic encephalopathy; K29.71 Gastritis, unspecified, with bleeding; I63.9 Cerebral infarction, unspecified; N39.0 Urinary tract infection, site not specified; E87.20 Acidosis, unspecified; E87.1 Hypo-osmolality and hyponatremia; E27.1 Primary adrenocortical insufficiency; E27.49 Other adrenocortical insufficiency; D47.1 Chronic myeloproliferative disease; K80.20 Calculus of gallbladder without cholecystitis without obstruction; D64.9 Anemia, unspecified; F19.10 Other psychoactive substance abuse, uncomplicated; E87.6 Hypokalemia; I10 Essential (primary) hypertension; J44.9 Chronic obstructive pulmonary disease, unspecified; F03.90 Unspecified dementia, unspecified severity, without behavioral disturbance, psychotic disturbance, mood disturbance, and anxiety; G89.29 Other chronic pain; M54.50 Low back pain, unspecified; E66.9 Obesity, unspecified; I25.10 Atherosclerotic heart disease of native coronary artery without angina pectoris; E78.00 Pure hypercholesterolemia, unspecified; E83.39 Other disorders of phosphorus metabolism; E83.42 Hypomagnesemia; I65.22 Occlusion and stenosis of left carotid artery; Z80.0 Family history of malignant neoplasm of digestive organs; Z86.711 Personal history of pulmonary embolism; Z79.899 Other long term (current) drug therapy; Z68.28 Body mass index [BMI] 28.0-28.9, adult
CPT/HCPCS: 36415; 36573; 70496; 70498; 70551; 71045; 74176; 80048; 80051; 80053; 80202; 80305; 80320; 81003; 82024; 82088; 82270; 82378; 82533; 82607; 82668; 82728; 82746; 82784; 82962; 83001; 83002; 83036; 83540; 83550; 83605; 83615; 83735; 83930; 84100; 84132; 84145; 84146; 84439; 84443; 84484; 84550; 85014; 85018; 85025; 85027; 85044; 85379; 85384; 86334; 86850; 86880; 86900; 86920; 87493; 88305; 88312; 88313; 92610; 93005; 93306; 93970; 97162; 97166; 97535; 99291; A6261; C1725; J0834; J1650; J1720; J2470; J2543; J2704; J3370; J3475; J3480; J3490; J7030; J7060; P9016; G0480